=== PATIENT | male | born 2000 | race Caucasian/White ===

== ENCOUNTER 2024-01-04 09:39 | Emergency (ER) | payer SELFPAY ==
[2024-01-04 09:44] VITALS: BP 124/62; PULSE 60; TEMP 36.9; O2SAT 99; BMI 24.4
--- NOTE | 2024-01-04 10:05 | XR_ITS ---
The [address] [address] Patient Name: ROCIO PACHECO MRN: [id number] date: 2000 Sex: M Assigned Patient Location: ER Current Patient Location: Accession/Order Number: [id number] Exam Date: 01/04/2024 10:14 Report Date: 01/04/2024 11:29 At the request of: KENDY FRENCH Procedure: XR finger LT min 2V EXAM: XR finger LT min 2V INDICATION: Left thumb laceration. COMPARISON: None. TECHNIQUE: Left thumb, 3 views FINDINGS: No acute fracture or dislocation. The joint spaces are preserved. No radiopaque foreign body. Soft tissue irregularity and swelling of the thumb. XR/XR finger LT min 2V IMPRESSION: No acute osseous abnormality of the left thumb. Electronically authenticated by: LASHELL RANGEL Date: 01/04/2024 11:29
[2024-01-04] MEDS: ADACEL DIPH,PERTUSS(ACELL),TET VAC/PF 0.5 ML ADULT SYRINGE IM (10:36)
--- NOTE | 2024-01-04 13:28 | ED.WOUNDLAC1 ---
HPI - Wound/Laceration General Chief Complaint: Wound/Laceration Stated Complaint: UPPER EXTREMITY INJURY, LEFT Time Seen by Provider: 01/04/24 09:53 History of Present Illness HPI narrative: The patient is coming to the ER after he had a laceration to his left thumb, the patient apparently was working with an ax when he put the ax down by mistake on his left hand and it did harm his left thumb. The patient had the injury yesterday almost more than 12 hours ago, he had put some glue there and controlled the bleeding and put a splint on The patient does not remember the last time he had a tetanus booster Related Data Previous Rx's ?Medication ?Instructions ?Recorded cephalexin 500 mg capsule 500 mg PO Q8H 3 days #9 caps 01/04/24 Allergies Allergy/AdvReac Type Severity Reaction Status Date / Time No Known Drug Allergies Allergy Verified 01/04/24 09:43 Review of Systems ROS Status of ROS 10 or more systems reviewed and unremarkable except as noted in history and below Exam Narrative Exam Narrative: Nurses notes and vital signs reviewed and patient is not hypoxic. Left hand examination: The patient have a left thumb laceration that already covered with glue I could not evaluate the wound and the patient have no vascular injury there is a full range of movement of the thumb General: Well-appearing and in no apparent distress. Skin: Warm, dry, no pallor noted. No rash. Head: Normocephalic, atraumatic. Neck: Supple, non-tender. Eye: Pupils are equal, round and EOMI. No scleral icterus. Ears, Nose, Mouth, and Throat: TM are clear, no nasal mucosal hypertrophy. Oral mucosa is moist, no posterior oropharynx erythema, uvula is mid-line Cardiovascular: Regular Rate and Rhythm without murmur, gallop or rub. Respiratory: No accessory muscle use or respiratory distress. Lungs are clear to auscultation, no wheezing, rales or rhonchi Chest Wall: no tenderness Back: No midline thoracic or lumbar vertebral tenderness. No CVA tenderness Musculoskeletal: normal ROM, no calf or popliteal tenderness, no lower extremity edema/swelling GI: Abdomen is soft, non-distended. Normal bowel sounds. No masses appreciated. No tenderness to palpation. No rebound, guarding, or rigidity noted. Neurological: A&O x4. No cranial nerve dysfunction observed. No truncal ataxia. Moves all extremities. Sensation intact. Psychiatric: Cooperative and interactive. Normal mood and affect. Constitutional Vital Signs, click to edit/add: Last Vital Signs Temp 98.4 F 01/04/24 09:44 Pulse 60 01/04/24 09:44 Resp 16 01/04/24 09:44 BP 124/62 01/04/24 09:44 Pulse Ox 99 01/04/24 09:44 O2 Del Method Room Air 01/04/24 09:44 Course Vital Signs Vital signs: Vital Signs Temperature 98.4 F 01/04/24 09:44 Pulse Rate 60 01/04/24 09:44 Respiratory Rate 16 01/04/24 09:44 Blood Pressure 124/62 01/04/24 09:44 Pulse Oximetry 99 01/04/24 09:44 Oxygen Delivery Method Room Air 01/04/24 09:44 Temperature 98.4 F 01/04/24 09:44 Pulse Rate 60 01/04/24 09:44 Respiratory Rate 16 01/04/24 09:44 Blood Pressure 124/62 01/04/24 09:44 Pulse Oximetry 99 01/04/24 09:44 Oxygen Delivery Method Room Air 01/04/24 09:44 MDM - Wound/Laceration MDM Narrative Medical decision making narrative: X-ray of the left finger showed no acute pathology The patient was provided with a tetanus booster I did explain to the patient that right now using nonmedical glue is not ideal and he should not have done that he should have came to the ER to be evaluated, and now that it is there and past more than 12 hours with the glue on the wound the removal of the glue will cause more harm The patient will be started antibiotic and he will monitoring for any signs of infection The patient is to follow up with primary care physician in next 2-3 days or to return to the emergency department should any of the signs or symptoms worsen or new symptoms develop. The patient agrees with the following Diagnosis and Treatment plan and the patient will be discharged home. Discharge Plan Discharge Chief Complaint: Wound/Laceration Clinical Impression: Laceration Patient Disposition: Home, Self-Care Time of Disposition Decision: 10:53 Condition: Good Mode of Transportation: Private Vehicle Prescriptions / Home Meds: New cephalexin 500 mg capsule 500 mg PO Q8H 3 Days Qty: 9 0RF Print Language: Czech Instructions: Laceration (DC), Laceration Without Closure (ED) Referrals: Physician,Non-Staff, MD [Primary Care Provider] - 1 week Discharge Date/Time: 01/04/24 10:58
== END 2024-01-04 10:58 | disposition home or self-care (01) ==
PROVIDERS: Emergency Provider Emergency Medicine
DX: S61.012A Laceration without foreign body of left thumb without damage to nail, initial encounter (principal); Z23 Encounter for immunization; W27.0XXA Contact with workbench tool, initial encounter
CPT/HCPCS: 12001; 73140; 90471; 90715; 99284

== ENCOUNTER 2024-11-30 07:13 | Emergency (ER) | payer SELFPAY ==
[2024-11-30 07:20] VITALS: BP 141/77; PULSE 78; TEMP 37.3; O2SAT 99; BMI 24.4
--- OUTSIDE RECORDS SUMMARY | 2024-11-30 07:22 | XMS_ITS | Patient Health Record ---
Author Organization [facility] [place] Address [address] [place] [address] Care Team Providers Care Addiction Treatment Counselor Name Role Phone Leonora Wilson Primary Care Provider Reason For Referral No Information Social History Tobacco Use: Social History Observation Description Date Details (start date - stop date) Never Smoker NA - NA Tobacco Use/Smoking Question Answer Notes Patient is a nonsmoker Alcohol Screen (Audit-C) Question Answer Notes Did you have a drink containing alcohol in the p ast year? No Points 0 Interpretation Negative Plan Of Treatment No Information Medical (General) History Medical History History ICD Code Allergies POTS? Surgical History Surgery Date(Month/Year) wisdom teeth 2018
--- OUTSIDE RECORDS SUMMARY | 2024-11-30 07:22 | XMS_ITS | Clinical Summary ---
Author Organization [facility] Address [id number] [address] [place] [address] Care Team Providers Care Bedspread Cutter Name Role Phone Unavailable Primary Care Provider Unavailabl e Social History Tobacco Use Types Packs/Day Years Used Date Smoking Tobacco: Never Assessed Childcare Answer Date Recorded Childcare Unknown 09/02/2018 Employment Answer Date Recorded Employment Unknown 09/02/2018 Sex and Gender Information Value Date Recorded Sex Assigned at Not on file Legal Sex Male 12:07 PM EDT Gender Identity Not on file Sexual Orientation Not on file Plan of Treatment Not on file Medical Devices Not on file
--- OUTSIDE RECORDS SUMMARY | 2024-11-30 07:22 | XMS_ITS | Clinical Summary ---
Author Organization [facility] Address [address] [facility] [place] [address] Care Team Providers Care Playground Worker Name Role Phone Shavon Chau MD Primary Care Provider [phone] Social History Tobacco Use Types Packs/Day Years Used Date Smoking Tobacco: Never Assessed Sex and Gender Information Value Date Recorded Sex Assigned at Not on file Legal Sex Male 7:29 PM EDT Gender Identity Not on file Sexual Orientation Not on file Last Filed Vital Signs Vital Sign Reading Time Taken Comments Blood Pressure 110/66 01/06/2018 12:00 PM EDT Pulse - - Temperature - - Respiratory Rate - - Oxygen Saturation - - Inhaled Oxygen Concentration - - Weight 70.3 kg (155 lb) 01/06/2018 12:00 PM EDT Height 182.2 cm (5' 11.75 ) 01/06/2018 12:00 PM EDT Body Mass Index 21.17 01/06/2018 12:00 PM EDT Plan of Treatment Not on file Care Teams Playground Worker Relationship Specialty Start Date End Date Shavon Chau MD [address] [place] [address] PCP - General Family Medicine 07/30/22
--- OUTSIDE RECORDS SUMMARY | 2024-11-30 07:22 | XMS_ITS | CCD ---
Author Organization [facility] Care Team Providers Care Coldfusion Name Role Phone Shavon Chau MD Primary Care Provider CAMRYN HSIEH Attending Unavailable Problems Problem Classification Problem Date Documented Da te Episodic/Chronic Other ear and sense organ disorders (1 source) Conductive hearing loss, unilateral, left ear, with unrestricted hearing on the contralateral side; Translations: [Conductive hearing loss, unilateral] 01-22-2024 Chronic Otitis media and related conditions (1 source) Perforation of left tympanic membrane; Translations: [Unspecified perforation of tympanic membrane, left ear] 01-22-2024 Episodic Results Test Name Value Interpretation Reference Range Facil it Auditory function testson Normal hearing both ears. Left TM perforation has healed. [facility] Encounters Encounter Date Encounter Type Care Provider Facility Start: 01-22-2024 End: 01-22-2024 [employer] Camryn Hsieh CCC-A Work Phone: [facility] Start: 01-22-2024 End: 01-22-2024 [employer] Camryn Hsieh CCC-A Work Phone: [facility] Start: 01-22-2024 End: 01-22-2024 Clinical Support Camryn Hsieh CCC-A Work Phone: [facility] Comment on above: Conductive hearing l oss of left ear with unrestricted hearing of right ear (Primary Dx); Perforation of left tympanic membrane Procedures Date Procedure Procedure Detail Performing Clinician Start: 01-22-2024 AUDITORY FUNCTION TESTS Camryn Hsieh CCC-A Work Phone: Plan of Treatment Date Care Activity Detail Author Start: 01-26-2024 End: 01-26-2024 Patient encounter procedure 01/26/2024 3:30 PM EST Office Visit [facility] [address] [place] [id number] Hugh Mireles, DO [address] [place] [address] [facility] Start: 01-22-2024 End: 01-22-2024 Clinical Support 01/22/2024 10:30 AM EDT Clinical Support [facility] [address] [place] [address] Camryn Hsieh CCC-A [address] [place] [address] Arrived [facility] Comment on above: Arrived Start: 11-23-2023 Influenza vaccination Influenza Vacc ine (#1) [facility] Immunizations Immunization Date Immunization Notes Care Provider [facility] 02-08-2013 influenza virus vacc ine, unspecified formulation Camryn Hsieh CCC-A Work Phone: [facility] Social History Date Type Detail Facility Tobacco smoking stat [facility] Tobacco smoking consumption unknown [facility] Start: 2000 Sex assigned at Not on file [facility] Gender identity Not on file [facility] History of Present illness Narrative 01-22-2024 Camryn Hsieh CCC-A - 01/22/2024 10:30 AM EDT Note Date & Type Note Facility 01-22-2024 History of Presen t illness Narrative History: Pt was referred to ENT because of left TM perforation. TM ruptured a few months ago secondary to an ear infection. Initially his hearing was decreased but now his hearing seems OK. Otoscopic Exam: Ear canal clear and TM intact AU Pure Tone Audiometry Right Ear: Normal hearing Left Ear: Normal hearing Speech Audiometry Right SRT = 5 dB and word discrimination score at 50 dBHL = 100% Left SRT = 5 dB and word discrimination score at 50 dBHL = 100% Tympanometry Right Ear: Type A tympanogram Left Ear: Type A tympanogram Impressions: Normal hearing both ears. Left TM perforation has healed. documented in this encounter [facility] Evaluation note Note Date & Type Note Facility Evaluation note Diagnosis Conductive hearing loss of left ear with unrestricted hearing of right ear- Primary Perforation of left tympanic membrane documented in this encounter [facility] Summary Purpose Family History No Family History Records Found Advance Directives No Advanced Directives Records Found Additional Source Comments Care Teams (unrecognized sec tion and content) Coldfusion Relationship Specialty Start Date End Date Shavon Chau MD [address] [place] [address] PCP - [facility] 07/30/22 Coldfusion Relationship Specialty Start Date End Date Shavon Chau MD [address] [place] [address] PCP - General Family Medicine 07/30/22 (unrecognized sect ion and content) No Status Records Found INFORMATION SOURCE (unrecogn ized section and content) DATE CREATED AUTHOR 01/24/2024 [facility] EPIC FOR RECORDS PERTAINING TO PATIENTS WHO ARE OR HAVE BEEN ENROLLED IN A CHEMICAL DEPENDENCY/SUBSTANCEABUSE PROGRAM, SOME INFORMATION MAY BE OMITTED. This clinical summary was aggregated from multiple sources. Caution should be exercised in using it in the provision of clinical care. This summary normalizes information from multiple sources, and as a consequence, information in this document may materially change the coding, format and clinical context of patient data. In addition, data may be omitted in some cases. CLINICAL DECISIONS SHOULD BE BASED ON THE PRIMARY CLINICAL RECORDS. [facility] [employer] provides no warranty or guarantee of the accuracy or completeness of information in this document.
--- NOTE | 2024-11-30 07:41 | ED_ITS ---
HPI HPI - General Adult General Chief complaint: Fever Stated complaint: FEVER Time Seen by Provider: 11/30/24 07:24 Source: patient Mode of arrival: walk-in Limitations: no limitations History of Present Illness HPI narrative: 24-year-old male presented to the emergency department for fever. He states this time he has had it for about 4 days but does not have any other symptoms such as sore throat or cough. No abdominal pain or vomiting or dysuria. He states that he has been getting fevers on and off for multiple years, ever since a trip to [place] in 2019. He had received all of his recommended immunizations prior to that trip and went to approximately 8 different countries. He will get a fever a few times a year and when he has been getting that he has been going to urgent cares and emergency departments. He took some Tylenol prior to coming into the emergency department. Related Data Allergies Allergy/AdvReac Type Severity Reaction Status Date / Time No Known Drug Allergies Allergy Verified 11/30/24 07:20 Opioid HPI Opioid Management Most Recent Opioid Data: Last Pain Scale 8 Today, 07:20 Review of Systems ROS Narrative A ten point review of systems is negative except as noted above. PFSH PFSH Social History Little interest or pleasure in doing things: not at all Feeling down, depressed, or hopeless: not at all Exam Narrative Exam Narrative: Nurses note and vital signs reviewed and patient is not hypoxic. General: The patient appears well and in no apparent distress. Patient is resting comfortably on cart. Skin: Warm, dry, no pallor noted. There is no rash noted. Head: Normocephalic, atraumatic Eye: Normal conjunctiva, no drainage Ears, Nose, Mouth, and Throat: oral mucosa is moist. Nares patent. Mouth without vesicles. Bilateral TMs and external canals are normal in appearance. No pharyngeal erythema or exudate. No cervical adenopathy. Cardiovascular: Regular Rate and Rhythm Respiratory: Patient is in no distress, no accessory muscle use, lungs are clear to auscultation, no wheezing, rales or rhonchi Back: non-tender GI: Soft and nontender Musculoskeletal: The patient has no evidence of calf tenderness, no pitting edema, symmetrical pulses noted bilaterally Neurological: A&O, normal speech Psychiatric: Cooperative Constitutional Vital Signs, click to edit/add: Last Vital Signs Temp 99.1 F 11/30/24 07:20 Pulse 78 09/09/25 07:20 Resp 14 11/30/24 07:20 BP 141/77 11/30/24 07:20 Pulse Ox 99 11/30/24 07:20 O2 Del Method Room Air 11/30/24 07:20 Course Vital Signs Vital signs: Vital Signs Temperature 99.1 F 11/30/24 07:20 Pulse Rate 78 11/30/24 07:20 Respiratory Rate 14 11/30/24 07:20 Blood Pressure 141/77 11/30/24 07:20 Pulse Oximetry 99 11/30/24 07:20 Oxygen Delivery Method Room Air 11/30/24 07:20 Temperature 99.1 F 11/30/24 07:20 Pulse Rate 78 11/30/24 07:20 Respiratory Rate 14 11/30/24 07:20 Blood Pressure 141/77 11/30/24 07:20 Pulse Oximetry 99 11/30/24 07:20 Oxygen Delivery Method Room Air 11/30/24 07:20 Medical Decision Making MDM Narrative Medical decision making narrative: His workup here is negative and he feels improved. We discussed infectious disease and he is going to contact 1 that his family member has in mind. Treatment diagnosis and follow-up were discussed thoroughly. There is no indication for antibiotic. Differential Diagnosis Differential Diagnosis: COVID, viral illness Lab Data Lab results reviewed: Yes I reviewed the patient's lab results Labs: Lab Results 11/30/24 11/30/24 11/30/24 Range/Units 07:56 07:58 09:00 WBC 8.3 (4.0-11.0) 10^3/uL RBC 4.83 (4.70-6.10) 10^6/uL Hgb 13.6 L (14.0-18.0) g/dL Hct 38.2 L (42.0-54.0) % MCV 79.1 L (80.0-94.0) fL MCH 28.2 (25.9-34.0) pg MCHC 35.6 H (29.9-35.2) g/dL RDW 11.5 (11.0-15.0) % Plt Count 205 (150-450) 10^3/uL MPV 9.5 (9.5-13.5) fL Neut % (Auto) 78.9 H (43.0-75.0) % Lymph % (Auto) 13.5 L (20.5-60.0) % Lamb % (Auto) 6.9 (1.7-12.0) % Eos % (Auto) 0.4 L (0.9-7.0) % Baso % (Auto) 0.2 (0.2-2.0) % Neut # (Auto) 6.6 H (1.4-6.5) 10^3/uL Lymph # (Auto) 1.1 L (1.2-3.8) 10^3/uL Lamb # (Auto) 0.6 (0.3-0.8) 10^3/uL Eos # (Auto) 0.0 (0.0-0.7) 10^3/uL Baso # (Auto) 0.0 (0.0-0.1) 10^3/uL Abs Immat Gran (auto) 0.01 (0.00-0.03) 10^3/uL Imm/Tot Granulo (auto) 0.1 (0.0-0.5) % Sodium 138 (136-145) mmol/L Potassium 4.1 (3.5-5.1) mmol/L Chloride 100 (98-107) mmol/L Carbon Dioxide 28.6 (21.0-32.0) mmol/L Anion Gap 13.5 BUN 12.0 (7.0-18.0) mg/dL Creatinine 0.97 (0.70-1.30) mg/dL Est GFR ( Amer) >60 (>=60 mL/min/1.73m^2) Est GFR (Non-Af Amer) >60 (>=60 mL/min/1.73m^2) BUN/Creatinine Ratio 12.4 Glucose 101 (74-106) mg/dL Calcium 9.1 (8.5-10.1) mg/dL Urine Color Lt. yellow (YELLOW) Urine Clarity Clear (CLEAR) Urine pH 8.0 (5.0-9.0) Ur Specific [place] 1.020 (1.005-1.025) Urine Protein Trace (NEG/TRACE) mg/dL Urine Glucose (UA) Negative (NEGATIVE) mg/dL Urine Ketones Trace A (NEGATIVE) mg/dL Urine Occult Blood Negative (NEGATIVE) Urine Nitrite Negative (NEGATIVE) Urine Bilirubin Negative (NEGATIVE) Urine Urobilinogen 2.0 A (0.2-1.0) EU/dL Ur Leukocyte Esterase Negative (NEGATIVE) Urine RBC None seen (0-2) #/HPF Urine WBC 0-2 A (NONE SEEN) #/HPF Ur Squamous Epith Cells Rare (NONE/RARE) #/LPF Urine Crystals None seen (None Seen) #/HPF Urine Bacteria Trace A (NONE SEEN) #/HPF Urine Casts None seen (NONE SEEN) #/LPF Urine Mucus Trace A (NONE SEEN) Ur Culture Indicated? No SARS-CoV-2 Ag (CV2AG) Negative (NEGATIVE) Discharge Plan Discharge Chief Complaint: Fever Clinical Impression: Fever Patient Disposition: Home, Self-Care Time of Disposition Decision: 09:30 Condition: Good Mode of Transportation: Private Vehicle Print Language: Arabic Instructions: Fever in Adults (ED) Additional Instructions: Follow-up with infectious disease specialist of your choice Referrals: Physician,Non-Staff, MD [Primary Care Provider] - 1 week
[2024-11-30] MEDS: 0.9 % SODIUM CHLORIDE 1,000 ML 1000 ML IV (08:03)
[2024-11-30] MEDS: KETOROLAC TROMETHAMINE 30 MG/ML VIAL IVP (08:05)
[2024-11-30 08:10] LABS: Hematocrit 38.2 % (42.0-54.0); Hemoglobin 13.6 g/dL (14.0-18.0); Immature Granulocytes Abs Auto 0.01 10^3/uL (0.00-0.03); Immature Granulocytes Pct Auto 0.1 % (0.0-0.5); Lymphocytes Absolute Auto 1.1 10^3/uL (1.2-3.8); Mean Corpuscular HGB Conc 35.6 g/dL (29.9-35.2); Mean Corpuscular Hemoglobin 28.2 pg (25.9-34.0); Mean Corpuscular Volume 79.1 fL (80.0-94.0); Platelet Count 205 10^3/uL (150-450); Red Blood Count 4.83 10^6/uL (4.70-6.10); White Blood Count 8.3 10^3/uL (4.0-11.0)
[2024-11-30 08:20] LABS: SARS-CoV-2 Ag NEGATIVE (NEGATIVE)
[2024-11-30 08:26] LABS: Anion Gap 13.5; Blood Urea Nitrogen 12.0 mg/dL (7.0-18.0); Calcium 9.1 mg/dL (8.5-10.1); Carbon Dioxide 28.6 mmol/L (21.0-32.0); Chloride 100 mmol/L (98-107); Estimated GFR (African America >60 (>=60 mL/min/1.73m^2); Estimated GFR (Non-African Ame >60 (>=60 mL/min/1.73m^2); Glucose 101 mg/dL (74-106); Potassium 4.1 mmol/L (3.5-5.1); Sodium 138 mmol/L (136-145)
[2024-11-30 09:11] LABS: Glucose Urine UA NEGATIVE (NEGATIVE)
[2024-11-30 09:20] LABS: Cast Seen? NONE SEEN #/LPF (NONE SEEN); Crystals Seen? None Seen #/HPF (None Seen); Urine Culture Indicated NO
[2024-11-30 09:38] VITALS: BP 131/58; PULSE 64; TEMP 37.3; O2SAT 100
== END 2024-11-30 09:40 | disposition home or self-care (01) ==
PROVIDERS: Emergency Provider Emergency Medicine
DX: R50.9 Fever, unspecified (principal)
CPT/HCPCS: 36415; 80048; 81001; 85025; 87811; 96374; 96375; 99284; J1885; J2405